=== PATIENT | male | born 1940 | race Caucasian/White ===

== ENCOUNTER 2018-06-21 07:04 | Outpatient (CLI) | payer OTHER ==
[~2018-06-21 07:04] MED LIST: ASPIR-LOW81 MG PO; ATORVASTATIN CA20 MG PO; CARVEDILOL25 MG PO; COREG CR20 MG PO; HYZAAR 100-251 UDTAB PO; LANTANAPROST; NORVASC5 MG PO; OSTERA TABLET1 EACH PO; VIT C-ROSE HIP500 MG PO
== END 2018-06-21 07:12 | disposition home or self-care (01) ==
LOC: SONOGRAMA 07:04 → MAMO-SONO 07:45
DX: N40.0 Benign prostatic hyperplasia without lower urinary tract symptoms (principal); R97.20 Elevated prostate specific antigen [PSA]; N30.00 Acute cystitis without hematuria

== ENCOUNTER 2019-05-14 10:37 | Outpatient (CLI) | payer OTHER | END 2019-05-14 10:43 | disposition home or self-care (01) | LOC: LAB 10:37 | DX: R97.20 Elevated prostate specific antigen [PSA] (principal) ==

== ENCOUNTER 2019-07-24 07:11 | Outpatient (CLI) | payer OTHER | END 2019-07-24 07:16 | disposition home or self-care (01) | LOC: SONOGRAMA 07:11 | DX: R97.20 Elevated prostate specific antigen [PSA] (principal) ==